=== PATIENT | female | born 1990 | race Caucasian/White ===

== ENCOUNTER 2019-12-07 10:04 | Emergency (ER) | payer BC, SELFPAY ==
[2019-12-07 10:18] VITALS: BP 110/61; PULSE 93; RESP 14; TEMP 36.9; O2SAT 100
--- NOTE | 2019-12-07 10:21 | ED.URI ---
HPI - URI/Sore Throat General Chief Complaint: Upper Respiratory Infection Stated Complaint: sore throat/fatigue/stiff neck Time Seen by Provider: 12/07/19 10:21 Source: patient Mode of arrival: ambulatory Limitations: no limitations History of Present Illness HPI Narrative: Dariana Newton is a 29 yo female with a PMH of recurrent strep, she started having a sore throat over a week ago but she is also had sinus drainage and she thought it was related to her sinus drainage. Redness continued to get more sore each day and last night she saw white spots in the back of her throat and she came here for treatment. States she is eating ibuprofen like candy Related Data Home Medications Medication Instructions Recorded Confirmed melatonin 3 mg PO HS 12/07/19 12/07/19 Allergies Allergy/AdvReac Type Severity Reaction Status Date / Time No Known Allergies Allergy Mild Verified 12/07/19 10:24 Review of Systems Review of Systems: Narrative: CONSTITUTIONAL: Denies fever, chills, sweats. EYES: Denies visual changes, redness, discharge. ENT: D mild rhinorrhea, congestion, has sore throat, otalgia. Tender submandibular lymph nodes CARDIOVASCULAR: Denies chest pain, palpitations, edema. RESPIRATORY: Denies dyspnea, wheezing, cough GASTROINTESTINAL: Denies abdominal pain, nausea, vomiting, diarrhea. GENITOURINARY: Denies dysuria, hematuria, abnormal discharge SKIN: Denies rash or itching. NEUROLOGIC: Denies numbness, or focal weakness. PSYCHIATRIC: Denies anxiety or depression. PMFSH Family History Family History Other No active medical problems Social History Social History (Updated 12/07/19 @ 10:33 by Savi Talamantes CNP) Smoking status: Former smoker Smoking end date: 04/09/13 Alcohol intake: current Comments At time of signature, I agree with nursing past medical, surgical, social and family history. There is no relevant family history pertinent to the presenting complaint. Exam Narrative: Exam Narrative: GENERAL: This is a well-nourished, well-developed patient, in mild distress. HEAD: normocephalic, atraumatic. EYES Sclera clear/white. Vision is grossly intact. EARS: External ears normal, auditory canals clear and without drainage, TMs normal without perforation. Hearing grossly intact. NOSE: External nose normal without nasal discharge, nares without redness, mild rhinorrhea. THROAT: Mucous membranes moist, posterior pharynx erythema; new bilateral submandibular lymph node; some hesitation in swallowing NECK: Neck supple, tender lymph node CARDIOVASCULAR: Regular rate and rhythm without murmurs, gallops, or rubs. RESPIRATORY: Clear to auscultation. Breath sounds equal bilaterally. No wheezes, rales, or rhonchi. GASTROINTESTINAL: Abdomen soft, SKIN: warm, intact with no suspicious lesions or rash, good texture and turgor. NEURO: awake, alert, and oriented to person, place and time. There were no obvious focal neurologic abnormalities. Steady gait EXTREMITIES: Normal range of motion. BACK: Nontender without deformity Course Course Emergency Course: Strep test negative sent for culture Started on penicillin 3 times daily x10 days; patient should hydrate, monitor amount of ibuprofen she is using Follow-up with PCP Vital Signs Vital signs: Vital Signs Temperature 98.4 F 12/07/19 10:18 Pulse Rate 93 12/07/19 10:18 Respiratory Rate 14 12/07/19 10:18 Blood Pressure 110/61 12/07/19 10:18 Pulse Oximetry 100 12/07/19 10:18 Temperature 98.4 F 12/07/19 10:18 Pulse Rate 93 12/07/19 10:18 Respiratory Rate 14 12/07/19 10:18 Blood Pressure 110/61 12/07/19 10:18 Pulse Oximetry 100 12/07/19 10:18 MDM - URI/Sore Throat Differential Diagnosis Differential diagnosis: Likely upper respiratory infection, sinusitis, pharyngitis and other Lab Data Labs: Strep Screen Presumptive Negative *(
== END 2019-12-07 10:44 | disposition home or self-care (01) ==
PROVIDERS: Emergency Provider Nurse Practitioner
DX: J02.9 Acute pharyngitis, unspecified (principal); Z87.891 Personal history of nicotine dependence
CPT/HCPCS: 87081; 87880; 99203; G0463